=== PATIENT | female | born 1940 | race Caucasian/White ===

== ENCOUNTER 2017-05-17 15:21 | Emergency (ER) | payer OTHER ==
[~2017-05-17] VITALS: Ht 164.5 cm; Wt 87.7 kg
[~2017-05-17 15:21] MED LIST: LEVO.05 PO; LORTA5 PO; POTA75TA2 PO; VITA50TA10 PO
[2017-05-17 15:35] VITALS: BP 145/84; PULSE 76; RESP 16; TEMP 98.3; O2SAT 98
[2017-05-17] MEDS ORDERED: SODIUM CHLORIDE 0.9% FLUSH 10 ML FLUSH IVF PRN (16:15)
--- NOTE | 2017-05-17 16:40 | PD ---
HPI Chief Complaint: Injury Time Seen by Provider: 15:41 Travel History International Travel<30 days: No Contact w/Intl Traveler<30days: No Traveled to known affect area: No History of Present Illness HPI Patient is a 76-year-old female presenting to emergency department for evaluation of right wrist and forearm pain after she sustained a mechanical fall last week. Patient reportedly blacked out, fall was unwitnessed. She is uncertain whether or not she hit her head. Patient states this has been ongoing for the last several years getting more frequent. The last time she passed out was 3 months ago. 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 Patient states her father had similar episodes, she does not have an actual diagnosis. She denied any preceding chest pain, shortness of breath, dizziness prior to the blackout. States after she blacks out it takes her several minutes to regain herself, she normally has to crawl across the floor to get herself up. She currently reports the pain in her wrist is a 5 out of 10 , she states it's sore when she attempts to move it or rotated. It continues to be swollen, she reports bruising to the left inner forearm as well. PFSH Past Medical History Cancer: Yes (COLON-COMPLETED CHEMO AND RADIATION) Chemotherapy: Yes Headaches: Yes Hypertension: Yes Medical other: Yes (random syncopal episodes) Thyroid Disease: Yes ?: Not Menopausal: Yes Tubal Ligation: Yes (1975) Past Surgical History Abdominal Surgery: Yes ([facility]AP [facility]) AICD: No Cardiac Surgery: No Cholecystectomy: Yes Ear Surgery: No Endocrine Surgery: No Eye Surgery: No Gynecologic Surgery: Yes (TL) Joint Replacement: No Oral Surgery: No Pacemaker: No Other Surgery: Yes Social History Alcohol Use: Yes (4 BEERS PER MONTH) Tobacco Use: No Substance Use: No Allergies-Medications (Allergen,Severity, Reaction): Coded Allergies: lisinopril (Unverified Allergy, Severe, 05/17/17) angioedema Reported Meds & Prescriptions Reported Meds & Active Scripts Active Hydrocodone/Acetaminophen 5 mg/325 mg 1 Tab 2 Tab PO Q4H PRN Reported Potassimin (Potassium) 75 Mg Tab 75 Mg PO DAILY Vitamin B-12 (Cyanocobalamin) 50 Mcg Tab Mcg PO DAILY Synthroid (Levothyroxine Sodium) 50 Mcg Tab 100 Mcg PO DAILY Review of Systems Except as stated in HPI: all other systems reviewed are Neg HENT: Positive: Headaches Cardiovascular: No: Chest Pain or Discomfort Respiratory: No: Shortness of Breath Gastrointestinal: No: Nausea, Vomiting, Abdominal Pain Musculoskeletal: Positive: Myalgias, Arthralgias, Limited ROM, Edema, Pain Neurologic: Positive: Syncope, No: Focal Abnormalities Physical Exam Narrative GENERAL: Well-developed, well-nourished, alert elderly female. Resting in no acute distress. SKIN: Warm and dry. HEAD: Atraumatic. Normocephalic. EYES: Pupils equal and round. No scleral icterus. No injection or drainage. ENT: No nasal bleeding or discharge. Mucous membranes pink and moist. NECK: Trachea midline. No JVD. CARDIOVASCULAR: Regular rate and rhythm. RESPIRATORY: No accessory muscle use. Clear to auscultation. Breath sounds equal bilaterally. GASTROINTESTINAL: Abdomen soft, non-tender, nondistended. Hepatic and splenic margins not palpable. MUSCULOSKELETAL: Extremities without clubbing, cyanosis. No obvious deformities. Edema to left wrist, ecchymosis noted to inner left forearm just distal to the elbow. Decreased range of motion to the left wrist and 2+ radial pulse, brisk with 3 second capillary refill. NEUROLOGICAL: Awake and alert. No obvious cranial nerve deficits. Motor grossly within normal limits. Five out of 5 muscle strength in the arms and legs. Normal speech. PSYCHIATRIC: Appropriate mood and affect; insight and judgment normal. Data Data Last Documented VS Vital Signs Date Time Temp Pulse Resp B/P (MAP) Pulse Ox O2 Delivery O2 Flow Rate FiO2 05/17/17 15:35 98.3 76 16 145/84 (104) 98 Orders Orders Electrocardiogram (05/17/17 16:10) Complete Blood Count With Diff (05/17/17 16:10) Comprehensive Metabolic Panel (05/17/17 16:10) Magnesium (Mg) (05/17/17 16:10) Ckmb (Isoenzyme) Profile (05/17/17 16:10) Troponin I (05/17/17 16:10) Act Partial Throm Time (Ptt) (05/17/17 16:10) Prothrombin Time / Inr (Pt) (05/17/17 16:10) Ct Brain W/O Iv Contrast(Rout) (05/17/17 16:10) Iv Access Insert/Monitor (05/17/17 16:10) Sodium Chloride 0.9% Flush (Ns Flush) (05/17/17 16:15) Wrist, Complete ([id number]) (05/17/17 ) Forearm (2vws) (05/17/17 ) Splinting (05/17/17 ) Labs Laboratory Tests Test 05/17/17 16:50 White Blood Count 5.1 TH/MM3 Red Blood Count 4.04 MIL/MM3 Hemoglobin 13.1 GM/DL Hematocrit 39.3 % Mean Corpuscular Volume 97.4 FL Mean Corpuscular Hemoglobin 32.3 PG Mean Corpuscular Hemoglobin Concent 33.2 % Red Cell Distribution Width 13.3 % Platelet Count 224 TH/MM3 Mean Platelet Volume 6.2 FL Neutrophils (%) (Auto) 60.9 % Lymphocytes (%) (Auto) 19.8 % Monocytes (%) (Auto) 16.2 % Eosinophils (%) (Auto) 2.7 % Basophils (%) (Auto) 0.4 % Neutrophils # (Auto) 3.2 TH/MM3 Lymphocytes # (Auto) 1.0 TH/MM3 Monocytes # (Auto) 0.8 TH/MM3 Eosinophils # (Auto) 0.1 TH/MM3 Basophils # (Auto) 0.0 TH/MM3 CBC Comment DIFF FINAL Differential Comment Prothrombin Time 10.1 SEC Prothromb Time International Ratio 1.0 RATIO Activated Partial Thromboplast Time 26.8 SEC Blood Urea Nitrogen 17 MG/DL Creatinine 0.70 MG/DL Random Glucose 92 MG/DL Total Protein 7.4 GM/DL Albumin 3.2 GM/DL Calcium Level 8.8 MG/DL Magnesium Level 2.3 MG/DL Alkaline Phosphatase 97 U/L Aspartate Amino Transf (AST/SGOT) 22 U/L Alanine Aminotransferase (ALT/SGPT) 19 U/L Total Bilirubin 0.4 MG/DL Sodium Level 139 MEQ/L Potassium Level 3.6 MEQ/L Chloride Level 106 MEQ/L Carbon Dioxide Level 27.5 MEQ/L Anion Gap 6 MEQ/L Estimat Glomerular Filtration Rate 82 ML/MIN Total Creatine Kinase 78 U/L Troponin I LESS THAN 0.02 NG/ML MDM Medical Decision Making Medical Screen Exam Complete: Yes Emergency Medical Condition: Yes Interpretation(s) Laboratory Tests Test 05/17/17 16:50 White Blood Count 5.1 TH/MM3 Red Blood Count 4.04 MIL/MM3 Hemoglobin 13.1 GM/DL Hematocrit 39.3 % Mean Corpuscular Volume 97.4 FL Mean Corpuscular Hemoglobin 32.3 PG Mean Corpuscular Hemoglobin Concent 33.2 % Red Cell Distribution Width 13.3 % Platelet Count 224 TH/MM3 Mean Platelet Volume 6.2 FL Neutrophils (%) (Auto) 60.9 % Lymphocytes (%) (Auto) 19.8 % Monocytes (%) (Auto) 16.2 % Eosinophils (%) (Auto) 2.7 % Basophils (%) (Auto) 0.4 % Neutrophils # (Auto) 3.2 TH/MM3 Lymphocytes # (Auto) 1.0 TH/MM3 Monocytes # (Auto) 0.8 TH/MM3 Eosinophils # (Auto) 0.1 TH/MM3 Basophils # (Auto) 0.0 TH/MM3 CBC Comment DIFF FINAL Differential Comment Prothrombin Time 10.1 SEC Prothromb Time International Ratio 1.0 RATIO Activated Partial Thromboplast Time 26.8 SEC Blood Urea Nitrogen 17 MG/DL Creatinine 0.70 MG/DL Random Glucose 92 MG/DL Total Protein 7.4 GM/DL Albumin 3.2 GM/DL Calcium Level 8.8 MG/DL Magnesium Level 2.3 MG/DL Alkaline Phosphatase 97 U/L Aspartate Amino Transf (AST/SGOT) 22 U/L Alanine Aminotransferase (ALT/SGPT) 19 U/L Total Bilirubin 0.4 MG/DL Sodium Level 139 MEQ/L Potassium Level 3.6 MEQ/L Chloride Level 106 MEQ/L Carbon Dioxide Level 27.5 MEQ/L Anion Gap 6 MEQ/L Estimat Glomerular Filtration Rate 82 ML/MIN Total Creatine Kinase 78 U/L Troponin I LESS THAN 0.02 NG/ML Last Impressions Head CT 05/17/17 1610 Signed Impressions: Service Date/Time: Wednesday, May 17, 2017 16:26 - CONCLUSION: 1. No evidence of acute intracranial pathology. No masses are identified. Colin Henao MD Wrist X-Ray 05/17/17 0000 Signed Impressions: Service Date/Time: Wednesday, May 17, 2017 16:16 - CONCLUSION: 1. Fracture distal radius and ulnar styloid Colin Henao MD Radius/Ulna X-Ray 05/17/17 0000 Signed Impressions: Service Date/Time: Wednesday, May 17, 2017 16:26 - CONCLUSION: 1. Fracture distal radius and ulnar styloid Colin Henao MD Vital Signs Date Time Temp Pulse Resp B/P (MAP) Pulse Ox O2 Delivery O2 Flow Rate FiO2 05/17/17 15:35 98.3 76 16 145/84 (104) 98 Differential Diagnosis Cardiac arrhythmia versus metabolic abnormality versus mass versus hemorrhage versus fracture versus sprain versus strain versus other Narrative Course Patient is 76-year-old female that presented to emergency for evaluation of left wrist pain and swelling after she sustained a fall last week that was unwitnessed. Upon further questioning patient admitted to having syncopal episodes every several months. She has not discussed this with any of her primary doctors to this point. Patient's vital signs are stable, EKG, CT of the brain, labs and wrist x-rays ordered and pending. Patient is well- appearing with no focal deficits noted on exam. EKG shows normal sinus rhythm Labs reviewed, no acute findings identified. CT scan of the brain which started by the radiologist shows no evidence of acute intracranial pathology, no masses are identified. X-ray of the left wrist shows a fracture of the distal radius and ulnar styloid. Patient will be placed in a sugar tong splint and sling. She is referred to Dr. Nolasco, orthopedic surgeon. She is advised to call to schedule a follow-up appointment. Patient was encouraged to return to emergency department immediately for any new or worsening symptoms. Patient's presentation, exam and findings as well as imaging findings were discussed with my attending physician who was in agreement with plan of care. Patient is stable for discharge home. 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 Primary Care Physician 2 days Patient Instructions: General Instructions, Syncope (ED), Wrist Fracture in Adults (DC) Additional Instructions: Follow-up with her primary doctor and crap game box person for further evaluation and management of syncopal episodes Follow-up with an orthopedic surgeon for further evaluation and management of your wrist fracture Return to emergency department for any new or worsening symptoms Med/Other Pt SpecificInfo: Prescription(s) given Scripts Tramadol (Tramadol) 50 Mg Tab 50 MG PO Q6H Y for PAIN, #10 TAB 0 Refills Prov: Dolores Vuong 05/17/17 Disposition: 01 DISCHARGE HOME Condition: Stable Dolores Vuong May 17, 2017 16:40
--- NOTE | 2017-05-17 17:01 | RADRPT ---
EXAM DATE/TIME: 05/17/2017 16:26 [facility] COMPARISON: No previous studies available for comparison. INDICATIONS : Patient says she blacked out a week ago. RADIATION DOSE: 61.18 CTDIvol (mGy) MEDICAL HISTORY : Hypertension. Cerebral aneurysm, thyroid disease, colon ca, rad tx and chemo SURGICAL HISTORY : Cholecystectomy. Tubal ligation. ENCOUNTER: Initial ACUITY: 1 week PAIN SCALE: 0/10 LOCATION: cranial TECHNIQUE: Multiple contiguous axial images were obtained of the head. Using automated exposure control and adj ustment of the mA and/or kV according to patient size, radiation dose was kept as low as reasonably a chievable to obtain optimal diagnostic quality images. DICOM format image data is available electro nically for review and comparison. FINDINGS: CEREBRUM: The ventricles are normal for age. No evidence of midline shift, mass lesion, hemorrhage or acute in farction. No extra-axial fluid collections are seen. POSTERIOR FOSSA: The cerebellum and brainstem are intact. The 4th ventricle is midline. The cerebellopontine angle i s unremarkable. EXTRACRANIAL: The visualized portion of the orbits is intact. SKULL: The calvaria is intact. No evidence of skull fracture. CONCLUSION: 1. No evidence of acute intracranial pathology. No masses are identified. Colin Henao MD on May 17, 2017 at 16:58 Board Certified Radiologist. This report was verified electronically.
--- NOTE | 2017-05-17 17:07 | RADRPT ---
EXAM DATE/TIME: 05/17/2017 16:16 [facility] COMPARISON: No previous studies available for comparison. INDICATIONS : Pain post fall. MEDICAL HISTORY : None. SURGICAL HISTORY : None. ENCOUNTER: Initial ACUITY: 4 - 6 days PAIN SCORE: 6/10 LOCATION: Left Wrist. FINDINGS: There is nondisplaced fracture of the distal radius and ulnar styloid. No intra-articular extension i s present. 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 Osseous structure s are osteopenic. CONCLUSION: 1. Fracture distal radius and ulnar styloid Colin Henao MD on May 17, 2017 at 17:05 Board Certified Radiologist. This report was verified electronically.
--- NOTE | 2017-05-17 17:08 | RADRPT ---
EXAM DATE/TIME: 05/17/2017 16:26 [facility] COMPARISON: No previous studies available for comparison. INDICATIONS : Pain post fall. MEDICAL HISTORY : None. SURGICAL HISTORY : None. ENCOUNTER: Initial ACUITY: 4 - 6 days PAIN SCORE: 6/10 LOCATION: Left Wrist. FINDINGS: Fracture distal radius is again identified. The shaft of the forearm is intact. CONCLUSION: 1. Fracture distal radius and ulnar styloid Colin Henao MD on May 17, 2017 at 17:05 Board Certified Radiologist. This report was verified electronically.
[2017-05-17 17:09] LABS: AUTOMATED NEUTROPHIL # 3.2 TH/MM3 (1.8-7.7); BASOPHIL % 0.4 % (0.0-2.0); EOSINOPHIL # 0.1 TH/MM3 (0-0.4); EOSINOPHIL % 2.7 % (0.0-4.0); HEMATOCRIT 39.3 % (35.0-46.0); HEMOGLOBIN 13.1 GM/DL (11.6-15.3); LYMPH % 19.8 % (9.0-44.0); MEAN CELL VOLUME 97.4 FL (80.0-100.0); MEAN CORPUSCULAR HEMOGLOBIN 32.3 PG (27.0-34.0); MEAN CORPUSCULAR HGB CONC 33.2 % (32.0-36.0); MEAN PLATELET VOLUME 6.2 FL (7.0-11.0); MONO % 16.2 % (0.0-8.0); MONOCYTE # 0.8 TH/MM3 (0-0.9); NEUT % 60.9 % (16.0-70.0); PLATELET COUNT 224 TH/MM3 (150-450); RED BLOOD COUNT 4.04 MIL/MM3 (4.00-5.30); RED CELL DISTRIBUTION WIDTH 13.3 % (11.6-17.2); WHITE BLOOD COUNT 5.1 TH/MM3 (4.0-11.0)
[2017-05-17 17:18] LABS: CHLORIDE 106 MEQ/L (98-107); SODIUM (NA) 139 MEQ/L (136-145)
[2017-05-17 17:21] LABS: ALBUMIN 3.2 GM/DL (3.4-5.0); BICARBONATE 27.5 MEQ/L (21.0-32.0); CALCIUM 8.8 MG/DL (8.5-10.1); GLUCOSE,RANDOM 92 MG/DL (74-106); MAGNESIUM 2.3 MG/DL (1.5-2.5)
[2017-05-17 17:22] LABS: BLOOD UREA NITROGEN 17 MG/DL (7-18); PROTHROMBIN TIME - PATIENT 10.1 SEC (9.8-11.6)
[2017-05-17 17:24] LABS: ALT (GPT) 19 U/L (10-53); AST (GOT) 22 U/L (15-37)
[2017-05-17 17:25] LABS: GLOMERULAR FILTRATION RATE 82 ML/MIN (>89)
[2017-05-17 17:26] LABS: TOTAL BILIRUBIN ADULT 0.4 MG/DL (0.2-1.0); TOTAL PROTEIN 7.4 GM/DL (6.4-8.2)
[2017-05-17 17:27] LABS: ALKALINE PHOSPHATASE 97 U/L (45-117)
[2017-05-17 17:29] LABS: TROPONIN I LESS THAN 0.02 NG/ML (0.02-0.05)
[2017-05-17] MEDS ORDERED: TRAM50TA PO (17:55)
--- NOTE | 2017-05-18 12:58 | EKG ---
Date Performed: 05/17/2017 Time Performed: 16:41:29 PTAGE: 76 years EKG: Sinus rhythm NORMAL ECG Since PREVIOUS TRACING , no significant change noted PREVIOUS TRACIN07/03/2015 10.12 DOCTOR: Manoj Powers Interpretating Date/Time 05/18/2017 12:56:13
== END 2017-05-17 18:28 | disposition home or self-care (01) ==
LOC: PHEFT 15:21 → PHED 18:28
DX: S52.502A Unspecified fracture of the lower end of left radius, initial encounter for closed fracture (principal); S52.602A Unspecified fracture of lower end of left ulna, initial encounter for closed fracture; W19.XXXA Unspecified fall, initial encounter; R55 Syncope and collapse; I10 Essential (primary) hypertension; E07.9 Disorder of thyroid, unspecified; Z85.038 Personal history of other malignant neoplasm of large intestine
CPT/HCPCS: 29125; 70450; 73090; 73110; 80053; 82550; 83735; 84484; 85025; 85610; 85730; 93005